=== PATIENT | female | born 1960 | race Caucasian/White ===

== ENCOUNTER 2017-02-09 19:41 | Day surgery (SDC) | payer OTHER ==
[2017-02-09] MEDS ORDERED: Morphine 4 MG/ML Carpuject ONE (21:35)
[2017-02-09 21:36] LABS: Bilirubin Negative (Negative); Blood, Urine Large (Negative); Glucose, Urine (Dipstick) Negative (Negative); Ketone, Urine Negative (Negative); Nitrite Negative (Negative); Protein, Urine (Dipstick) Negative (Neg-Trace)
[2017-02-09] MEDS ORDERED: Piperacillin/Tazobactam 3.375 GM VIAL ONE (21:36)
[2017-02-09] MEDS ORDERED: Ondansetron HCl/PF 4 MG/2 ML Vial ONE (21:36)
[2017-02-09 21:38] LABS: Bacteria/HPF 1+ HPF (None Seen); Squamous Epithelial 0-3 HPF (0-3); WBC/HPF 0-3 HPF (0-3)
[2017-02-09 22:06] LABS: Band 2 % (5-11); Hematocrit 38.8 % (36.0-47.0); Mean Platelet Volume 6.1 fL (7.4-10.4); Neutrophil 77 % (42-75); Reactive Lymphocytes 3 % (0-10); Red Blood Cell (RBC) Count 4.41 mill/uL (4.20-5.40); Toxic Granulation SLIGHT; White Blood Cell (WBC) Count 9.9 thou/uL (4.8-10.8)
[2017-02-09 22:12] LABS: ALT (SGPT) 20 U/L (8-55); AST (SGOT) 19 U/L (5-34); Alkaline Phosphatase 76 U/L (40-150); Anion Gap 16 mmol/L (10-20); BUN (Urea Nitrogen) 14 mg/dL (9.8-20.1); Bilirubin, Total 0.7 mg/dL (0.2-1.2); Calc. Creatinine Clearance 0 mL/min (70-130); Calcium 9.6 mg/dL (7.8-10.44); Carbon Dioxide 23 mmol/L (22-29); Chloride 105 mmol/L (98-107); Estimated GFR-MDRD 75; Globulin 2.6 g/dL (2.4-3.5); Protein, Total 6.8 g/dL (6.0-8.3)
[2017-02-09] MEDS ORDERED: Ketorolac Tromethamine 30 MG/ML VIAL ONE (22:14)
[2017-02-09 22:20] LABS: PTT 30.4 SEC (22.9-36.1); Prothrombin Time 14.4 SEC (12.0-14.7)
--- NOTE | 2017-02-09 23:44 | CT ---
CT OF THE ABDOMEN AND PELVIS WITH IV AND ENTERIC CONTRAST 02/09/17 PROVIDED CLINICAL HISTORY: Right lower quadrant pain. FINDINGS: The visualized lung bases are free of significant opacity. The solid abdominal organs demonstrate an unremarkable CT appearance. There is conspicuous mural thickening involving the cecal apex as well as the distal most aspects of the terminal ileum. There is a fluid filled appendix which demonstrates mural enhancement and equivoc al mural thickening. It measures 6 to 7 mm in caliber. There is stranding of the fat surrounding prim arily the cecal apex and terminal ileum and less so the appendix. There is a small amount of free pelvic fluid. The osseous structures demonstrate no concerning osteoblastic or osteolytic lesions. IMPRESSION: Inflammatory changes in the right lower quadrant with an abnormal appearance to the appendix, cecal a pex, and terminal ileum. The findings may represent acute appendicitis with reactive changes in the adjacent cecum and terminal ileum. An additional diagnostic consideration would include an infectious process involving the terminal ileum and cecum with secondary involvement of the appendix. However, this is less favored. POS: ALFREDO
[2017-02-10] MEDS ORDERED: Piperacillin/Tazobactam 3.375 GM in Sodium Chloride 0.9% 100 ML IVPB SCH (08:30)
--- NOTE | 2017-02-10 09:55 | OP ---
DATE OF PROCEDURE: 02/10/2017 PREOPERATIVE DIAGNOSIS: Acute appendicitis. SURGEON: Fran Martel M.D. PROCEDURE PERFORMED: Laparoscopic appendectomy. INDICATIONS: The patient is a 56-year-old female with a 2-day history of abdominal pain, became righ t lower quadrant pain yesterday. CT showed appendicitis. FINDINGS: Acute suppurative nonperforated appendicitis. PROCEDURE IN DETAIL: After informed consent was obtained, the patient was taken to the operating rebeka m and given general endotracheal anesthesia. She was placed in the supine position. The abdomen pre pped and draped in the usual fashion. Local anesthesia infiltrated subcutaneously and deep. A subum bilical incision was performed, subcu divided sharply. The fascia grasped and 2 stay sutures of 0 Vi cryl placed to either side of midline. Midline incised. Digital palpation revealed no local adhesio ns. A blunt 10/12 mm trocar inserted. Pneumoperitoneum was created to a pressure of 15 mmHg. A 0 d egree laparoscope inserted. Under direct vision, two 5-mm ports were placed, 1 suprapubic and 1 righ t lateral abdomen. The appendix grasped. The mesoappendix divided with the LigaSure. Base of the a ppendix divided with a linear 45 mm white load stapler. The appendix placed in an Endosac and remove d from the abdomen in the Endosac. Hemostasis assured. The abdomen irrigated, irrigation fluid mario cheikh. Hemostasis was assured. Trocars and retractors removed. The skin closed with interrupted 4-0 Rapide. Dermabond applied. The patient tolerated the procedure well and transferred to recovery in good condition. Sponge and needle count verified correct x2.
[2017-02-10] MEDS ORDERED: Succinylcholine Chloride 20 MG/ML 10 ml SYRINGE FS ONE (17:01)
[2017-02-10] MEDS ORDERED: Dexamethasone 20 MG/5 ML VIAL ONE (17:01)
[2017-02-10] MEDS ORDERED: Propofol 200 MG/20 ML VIAL ONE (17:01)
[2017-02-10] MEDS ORDERED: Ketorolac Tromethamine 30 MG/ML VIAL ONE (17:01)
[2017-02-10] MEDS ORDERED: Glycopyrrolate 0.2 MG/ML 5 ML SYRINGE ONE (17:01)
[2017-02-10] MEDS ORDERED: Ondansetron HCl/PF 4 MG/2 ML Vial ONE (17:01)
[2017-02-10] MEDS ORDERED: Lidocaine 1% PF 5 ML VIAL ONE (17:01)
[2017-02-10] MEDS ORDERED: PHENYLEPHRINE-NS 100 MCG/ML 10 ML SYRINGE ONE (17:01)
[2017-02-10] MEDS ORDERED: ePHEDrine/0.9% NaCl/PF SYRINGE 50 mg/10 ml ONE (17:01)
--- NOTE | 2017-02-15 08:03 | HP ---
CHIEF COMPLAINT: Right lower quadrant abdominal pain. HISTORY OF PRESENT ILLNESS: The patient is a 56-year-old female with a 2-day history of bloating, wh ich yesterday turned into right lower quadrant pain about noon, it progressed and she went to the ER, she had a CT scan showing appendicitis. PAST MEDICAL HISTORY: History of coronary artery disease, she had a myocardial infarction in 2016. PAST SURGICAL HISTORY: section x2, bilateral tubal ligation. MEDICATIONS: Metoprolol, atorvastatin, fluoxetine, vitamin D, aspirin. ALLERGIES: No known drug allergies. SOCIAL HISTORY: She is , retired middle school coach. No tobacco, social alcohol. FAMILY HISTORY: Lung cancer. PHYSICAL EXAMINATION: VITAL SIGNS: Temperature 98.8, pulse 89, blood pressure 109/62. GENERAL: Well-developed, well-nourished female, in no apparent distress. HEENT: Unremarkable. LUNGS: Clear. HEART: Regular rate and rhythm. ABDOMEN: Soft, but very tender in the right lower quadrant to percussion. IMAGING: CT scan shows appendicitis. ASSESSMENT: Acute appendicitis. PLAN: Laparoscopic appendectomy. CONSENT: I have discussed the planned procedure as well as risk of bleeding, infection, injury to jorge wel, bladder, need to open. She understands and gives informed consent.
== END 2017-02-10 11:17 | disposition home or self-care (01) ==
LOC: SCSER 19:41 → SDC 19:42 → UNDOADMIN 02-10 01:34 → ERHOLD 02-10 01:34 → SCSER 02-10 02:24 → ERHOLD 02-10 02:24 → SDC 02-10 11:17 → UNDODISIN 02-10 11:17
PROVIDERS: ATTEND Surgery
PROC: 0DTJ4ZZ Resection of Appendix, Percutaneous Endoscopic Approach (ICD-10-PCS; principal; 2017-02-10)
DX: K35.80 Unspecified acute appendicitis (principal); I25.2 Old myocardial infarction
CPT/HCPCS: 74177; 80053; 81003; 81015; 85025; 85610; 85730; 88304; 96361; 96365; 96375; J1100; J1885; J2001; J2270; J2405; J2543; J2704; J3010; J7050

== ENCOUNTER 2017-02-22 09:00 | Outpatient (CLI) | payer OTHER | END 2017-02-22 09:01 | disposition home or self-care (01) | LOC: BICMAMMO 09:00 | PROVIDERS: ATTEND Obstetrics & Gynecology | DX: Z12.31 Encounter for screening mammogram for malignant neoplasm of breast (principal) | CPT/HCPCS: 77063; 77067 ==

== ENCOUNTER 2018-02-23 08:23 | Outpatient (CLI) | payer OTHER | END 2018-02-23 08:24 | disposition home or self-care (01) | LOC: BICMAMMO 08:23 | PROVIDERS: ATTEND Obstetrics & Gynecology | DX: Z12.31 Encounter for screening mammogram for malignant neoplasm of breast (principal) | CPT/HCPCS: 77063; 77067 ==

== ENCOUNTER 2019-03-07 08:47 | Outpatient (CLI) | payer OTHER ==
--- NOTE | 2019-03-07 09:59 | MMO ---
Bilateral MAMMO Bilat Screen [facility]. CLINICAL HISTORY: Patient is 59 years old and is seen for screening. The patient has no family history of breast cancer. The patient has no personal history of cancer. VIEWS: The views performed were: bilateral craniocaudal with tomosynthesis; bilateral mediolateral oblique with tomosynthesis; and bilateral exaggerated craniocaudal. FILMS COMPARED: The present examination has been compared to prior imaging studies performed at [facility] on 02/05/2015, 02/08/2016, 02/22/2017 and 02/23/2018. This study has been interpreted with the assistance of computer-aided detection. MAMMOGRAM FINDINGS: The breasts are heterogeneously dense, which could obscure a lesion on mammography. There are no suspicious masses, suspicious calcifications, or new areas of architectural distortion. IMPRESSION: THERE IS NO MAMMOGRAPHIC EVIDENCE OF MALIGNANCY. A ROUTINE FOLLOW-UP MAMMOGRAM IN 1 YEAR IS RECOMMENDED. THE RESULTS OF THIS EXAM WERE SENT TO THE PATIENT. ACR BI-RADS Category 1 - Negative MAMMOGRAPHY NOTE: 1. A negative mammogram report should not delay a biopsy if a dominant of clinically suspicious mass is present. 2. Approximately 10% to 15% of breast cancers are not detected by mammography. 3. Adenosis and dense breasts may obscure an underlying neoplasm. Reported by: JUJU SELLERS MD Electonically Signed: [id number]
== END 2019-03-07 08:48 | disposition home or self-care (01) ==
LOC: BICMAMMO 08:47
PROVIDERS: ATTEND Obstetrics & Gynecology
DX: Z12.31 Encounter for screening mammogram for malignant neoplasm of breast (principal)
CPT/HCPCS: 77063; 77067

== ENCOUNTER 2021-03-24 14:42 | Outpatient (CLI) | payer BC | END 2021-03-24 14:43 | disposition home or self-care (01) | LOC: BICMAMMO 14:42 | PROVIDERS: ATTEND Obstetrics & Gynecology | DX: Z12.31 Encounter for screening mammogram for malignant neoplasm of breast (principal) | CPT/HCPCS: 77063; 77067 ==

== ENCOUNTER 2022-04-18 15:19 | Outpatient (CLI) | payer BC | END 2022-04-18 15:20 | disposition home or self-care (01) | LOC: BICMAMMO 15:19 | PROVIDERS: ATTEND Obstetrics & Gynecology | DX: Z12.31 Encounter for screening mammogram for malignant neoplasm of breast (principal) | CPT/HCPCS: 77063; 77067 ==

== ENCOUNTER 2024-02-29 14:58 | Outpatient (CLI) | payer BC | END 2024-02-29 14:59 | disposition home or self-care (01) | LOC: BICMAMMO 14:58 | PROVIDERS: ATTEND Obstetrics & Gynecology | DX: Z78.0 Asymptomatic menopausal state (principal); M85.88 Other specified disorders of bone density and structure, other site | CPT/HCPCS: 77080 ==